=== PATIENT | female | born 1965 | race African-American/Black ===

== ENCOUNTER 2024-01-15 14:35 | Emergency (ER) | payer MEDICARE, MEDICAID, SELFPAY ==
--- NOTE | ~2024-01-15 | XR_ITS ---
EXAMINATION: XR LUMBOSACRAL SPINE CLINICAL INFORMATION: Back pain COMPARISON: None available. TECHNIQUE: Three views of the lumbosacral spine. Per technologist report, patient positioning with limited due to movement. FINDINGS: There is a mild levoscoliosis centered at L2. There is grade 1 retrolisthesis of L2 on L3 and grade 1 anterolisthesis of L4 on L5 which are age-indeterminate. Vertebral body heights are maintained. No definite acute fracture is seen. There is suspected mild multilevel disc space narrowing, suboptimally assessed due to positioning. There is suspected mild facet arthropathy of the lower lumbar spine. XR/XR lumbar spine 2-3V IMPRESSION: Suboptimal assessment due to positioning. Grade 1 retrolisthesis of L2 on L3 and grade 1 anterolisthesis of L4 on L5; these are age-indeterminate and may be chronic. Mild multilevel disc space narrowing suspected.
--- NOTE | ~2024-01-15 | XR_ITS ---
EXAMINATION: XR BILATERAL HIPS WITH AP PELVIS CLINICAL INFORMATION: Difficulty ambulating COMPARISON: None available. TECHNIQUE: AP pelvis, AP pelvis, AP right hip, AP left hip, oblique lateral right hip, oblique lateral left hip FINDINGS: Multiple pelvic phleboliths are noted. Intestinal anastomotic sutures are projected over the midline pelvis. The sacrum appears intact. The pelvis appears intact. The visualized femurs appear intact. XR/XR hip BI w PEL1V IMPRESSION: *No acute abnormalities identified. No fractures visualized. *Intestinal anastomotic chain sutures projected over the midline pelvis.
[2024-01-15 15:04] VITALS: BP 125/85; PULSE 76; RESP 18; TEMP 36.6; O2SAT 98; BMI 44.1
--- NOTE | 2024-01-15 15:04 | ED_ITS ---
HPI - General Adult General Chief complaint: Back Pain/Injury Stated complaint: walking huntch over Time Seen by Provider: 01/15/24 19:56 Source: patient Mode of arrival: ambulatory Limitations: no limitations History of Present Illness HPI narrative: Patient with history of chronic left hip pain also scoliosis unable to be managed at home no recent fall with history of cocaine and marijuana use looking for rehab no weakness no abdominal pain Related Data Allergies Allergy/AdvReac Type Severity Reaction Status Date / Time haloperidol [From Haldol] Allergy dystonia Verified 01/15/24 15:08 metoclopramide [From Reglan] AdvReac Itching Verified 01/15/24 15:08 Review of Systems 2 Review of Systems: Yes all other systems are reviewed and are negative [facility] Social History Social History Smoked in Last 30 Days: Yes Use of substances other than those prescribed or required for medical reasons: Yes Substance Use Type: Crack/Cocaine and IV Drugs Substance Use Frequency: Chronic Longstanding Advance Directives: Yes Advance Directives on File: Yes Advance Directives Date on File: 01/16/24 Patient : No Physical Exam ED Vital Signs: Vital Signs - 24 hr 01/15/24 15:04 01/15/24 17:56 01/15/24 19:57 Temperature 97.9 F 97.9 F 98.2 F Pulse Rate 76 71 100 Respiratory Rate 18 16 16 Blood Pressure 125/85 140/87 H 120/80 Pulse Oximetry 98 99 97 Oxygen Delivery Method Room Air Room Air Room Air 01/15/24 22:00 01/16/24 01:26 Temperature 98.1 F 99.1 F Pulse Rate 64 62 Respiratory Rate 16 16 Blood Pressure 123/76 123/73 Pulse Oximetry 97 95 Oxygen Delivery Method Room Air Room Air BMI result Body Mass Index 44.1 Appearance: Alert. Oriented X3. No acute distress. Eyes: PERRLA, ENT: Pharynx normal. Oral Mucosa moist Neck: Normal inspection. Neck supple. CVS: Normal heart rate and rhythm. Pulses normal. Respiratory: No respiratory distress. Equal air entry bilateral, no wheezing/rales/rhonchi Abdomen: Soft and nontender. Bowel sounds are present, no mass palpable, no CVA tenderness Skin: Skin warm and dry. Normal skin color. Normal skin turgor. back: Scoliosis+ no midline 10 Extremities: No lower extremity edema. No calf tenderness diffuse tenderness left lateral aspect of the thigh SLR negative good range of movement Neuro: Oriented X 3. No motor deficit. No sensory deficit.No cerebellar signs , cranial nerves II-XII intact Course Course Course Narrative: This is a rapid medical exam: Additional HPI, ROS, PE not included below will be deferred to primary provider. Patient is a 58-year-old female presenting to the ED stating that she was recently diagnosed with scoliosis, has been having left hip pain for the past 2 weeks. Called PCP, Dr. Laughlin, who referred patient to ED for admission/STR. Patient states she is barely able to ambulate. Plan: x-rays Reevaluation(s) Reevaluation #1: Physician observation continued. Vital signs stable. Patient awaiting PT Case Management evaluation. She is complaining of hip pain. Medicated with Tylenol 1 g p.o.. Will continue to monitor pending PT Case Management dispo. Time: 08:51 Medications Administered Discontinued Medications Generic Name Dose Route Start Last Admin Trade Name Zia PRN Reason Stop Dose Admin Gabapentin 300 mg 01/16/24 01:11 01/16/24 01:31 Gabapentin 300 Mg Capsule PO 01/16/24 01:12 300 mg ONCE ONE Administration Lorazepam 1 mg 01/16/24 01:11 01/16/24 01:31 Lorazepam 1 Mg Tablet PO 01/16/24 01:12 1 mg ONCE ONE Administration Morphine Sulfate 15 mg 01/15/24 20:19 01/15/24 20:28 Morphine Sulfate Immed Release 15 Mg Tablet PO 01/15/24 20:20 15 mg ONCE ONE Administration Medical Decision Making Medical Decision Making [facility] Narrative: Patient has chronic back pain and left leg pain likely sciatica patient claims that she can not walker manage at home because of the pain x-rays negative will keep patient in the ER for rehab placement Lab Data [facility] Lab Attestation statement: I reviewed the patient's lab results. 01/15/24 20:10 01/15/24 20:10 Labs: Lab Results 01/15/24 Range/Units 20:10 WBC 10.3 (4.8-10.8) X10*3/uL RBC 4.61 (4.20-5.50) X10*6/uL Hgb 14.1 (12.0-16.0) g/dl Hct 40.9 (37.0-47.0) % MCV 88.7 (80.0-98.0) fL MCH 30.6 (27.0-33.0) pg MCHC 34.5 (31.0-35.0) g/dl RDW 12.7 (11.0-16.0) % Plt Count 326 (160-400) X10*3/uL MPV 8.7 L (9.4-12.3) fL Immature Gran % (Auto) 1.2 H (0.0-0.4) % Neut % (Auto) 56.2 (45-73) % Lymph % (Auto) 32.4 (20-40) % Morrow % (Auto) 7.7 (2-11) % Eos % (Auto) 2.1 (0-4) % Baso % (Auto) 0.4 (0-2) % Lymph # (Auto) 3.3 (1.2-4.9) X10*3/uL Morrow # (Auto) 0.8 (0.1-1.2) X10*3/uL Eos # (Auto) 0.2 (0.0-0.4) X10*3/uL Baso # (Auto) 0.0 (0.0-0.2) X10*3/uL Abs Immat Gran (auto) 0.12 H (0.00-0.03) X10*3/uL Absolute Neuts (auto) 5.8 (2.0-8.3) x10*3/uL Absolute Nucleated RBC 0.000 (0.0-0.012) X10*3/uL Nucleated RBC % (auto) 0.0 (0.0-0.2) /100WBC Sodium 137 (135-145) mmol/L Potassium 3.7 (3.3-5.1) mmol/L Chloride 107 (96-108) mmol/L Carbon Dioxide 22 (22-29) mmol/L Anion Gap 12 (12-20) BUN 19 H (9-16) mg/dL Creatinine 0.96 (0.5-1.4) mg/dL Estim Creat Clear Calc 78.1 Estimated GFR 59 Random Glucose 93 (60-115) mg/dL Calcium 9.2 (8.4-10.2) mg/dL Total Bilirubin 0.2 (0.0-1.0) mg/dL AST 18 (5-31) U/L ALT 26 (0-31) U/L Alkaline Phosphatase 100 (39-117) U/L Total Protein 6.8 (6.5-8.0) g/dL Albumin 3.9 (3.5-5.0) g/dL Influenza Type A (PCR) NEGATIVE (Negative) Influenza Type B (PCR) NEGATIVE (Negative) RSV RNA Qual (PCR) NEGATIVE (Negative) SARS-CoV-2 RNA (RT-PCR) NEGATIVE (Negative) Independent Interpretation I performed an independent interpretation of an: Plain X-Ray Radiology Impression Discussion of test interpretation with radiology: I have reviewed the radiologist's reading. Radiologist Impression: XR/XR lumbar spine 2-3V IMPRESSION: Suboptimal assessment due to positioning. Grade 1 retrolisthesis of L2 on L3 and grade 1 anterolisthesis of L4 on L5; these are age-indeterminate and may be chronic. Mild multilevel disc space narrowing suspected. Discharge Plan Discharge Clinical Impression: Sciatica, Chronic back pain, Cocaine abuse Patient Disposition: Still a Patient
[2024-01-15 17:56] VITALS: BP 140/87; PULSE 71; RESP 16; TEMP 36.6; O2SAT 99
--- NOTE | 2024-01-15 18:04 | PC.NURSE ---
a&ox4. vss and up to date aside from being slightly hypertensive. pt presents to the ED d/t chronic bilateral hip pain that radiates to LE bilaterally. pt rating pain at a 10/10. pt was seen by provider earlier when pt was then advised pt to be seen in ED today to have PT/CM evaluation completed. pt verbalizes minimal relief w/ OTC Tylenol as well as prescribed gabapentin. pt also states she self medicates w/ marijuana (inhalation) and cocaine (intranasally). pt visibly tearful/unable to find a comfortable. no sob/wob noted. respirations even and unlabored. plan of care ongoing.
[2024-01-15 19:57] VITALS: BP 120/80; PULSE 100; RESP 16; TEMP 36.8; O2SAT 97
[2024-01-15 20:14] LABS: MANUAL DIFF FLAG NO
[2024-01-15 20:15] LABS: Basophils Percent Auto 0.4 % (0-2); Eosinophils Absolute Auto 0.2 X10*3/uL (0.0-0.4); Eosinophils Percent Auto 2.1 % (0-4); Hematocrit 40.9 % (37.0-47.0); Hemoglobin 14.1 g/dl (12.0-16.0); Imm Gran Abs Auto 0.12 X10*3/uL (0.00-0.03); Imm Gran Pct Auto 1.2 % (0.0-0.4); Lymphocytes Absolute Auto 3.3 X10*3/uL (1.2-4.9); Lymphocytes Percent Auto 32.4 % (20-40); Mean Corpuscular HGB Conc 34.5 g/dl (31.0-35.0); Mean Corpuscular Hemoglobin 30.6 pg (27.0-33.0); Mean Corpuscular Volume 88.7 fL (80.0-98.0); Mean Platelet Volume 8.7 fL (9.4-12.3); Monocytes Absolute Auto 0.8 X10*3/uL (0.1-1.2); Monocytes Percent Auto 7.7 % (2-11); Neutrophils Absolute Auto 5.8 x10*3/uL (2.0-8.3); Neutrophils Percent Auto 56.2 % (45-73); Platelet Count 326 X10*3/uL (160-400); Red Blood Count 4.61 X10*6/uL (4.20-5.50); Red Cell Distribution Width 12.7 % (11.0-16.0); White Blood Count 10.3 X10*3/uL (4.8-10.8)
[2024-01-15 20:28] LABS: Alanine Aminotransferase 26 U/L (0-31); Albumin Level 3.9 g/dL (3.5-5.0); Alkaline Phosphatase 100 U/L (39-117); Anion Gap 12 (12-20); Aspartate Amino Transferase 18 U/L (5-31); Bilirubin Total 0.2 mg/dL (0.0-1.0); Blood Urea Nitrogen 19 mg/dL (9-16); Calcium 9.2 mg/dL (8.4-10.2); Carbon Dioxide 22 mmol/L (22-29); Chloride 107 mmol/L (96-108); Creatinine Clr Calc Pharmacy 78.1; Estimated Glomerular Filt Rate 59; Glucose Random 93 mg/dL (60-115); Potassium 3.7 mmol/L (3.3-5.1); Sodium 137 mmol/L (135-145); Total Protein 6.8 g/dL (6.5-8.0)
[2024-01-15] MEDS: Morphine Sulfate Immed Release 15 MG TABLET PO (20:28)
--- NOTE | 2024-01-15 20:40 | PC.NURSE ---
tried to obtain urine sample however pt had diarrhea BM instead
--- NOTE | 2024-01-15 20:44 | MHC.EDTECH ---
Patient was assisted to bathroom with 2 asst and had diarrhea ,RN aware ,Patient was assisted back to bed .
[2024-01-15 20:51] LABS: Influenza A PCR NEGATIVE (Negative); Influenza B PCR NEGATIVE (Negative); Resp Syncy Virus RNA Qual PCR NEGATIVE (Negative); SARS COV2 PCR INHOUSE NEGATIVE (Negative)
[2024-01-15 22:00] VITALS: BP 123/76; PULSE 64; RESP 16; TEMP 36.7; O2SAT 97
--- NOTE | 2024-01-16 00:34 | MHC.EDTECH ---
Patient not able to give a urine sample .
[2024-01-16 01:26] VITALS: BP 123/73; PULSE 62; RESP 16; TEMP 37.3; O2SAT 95
--- NOTE | 2024-01-16 01:27 | MHC.EDTECH ---
VITALS TAKEN ,PURE WICK IN PLACE ,AND PATIENT WAS GIVEN FOOD AND FLUIDS ,CALL GUY WITHIN PATIENT REACH .
[2024-01-16] MEDS: LORazepam 1 MG TABLET PO ×3 (01:31→22:12)
[2024-01-16] MEDS: Gabapentin 300 MG CAPSULE PO ×2 (01:31→22:12)
--- NOTE | 2024-01-16 03:50 | MHC.EDTECH ---
Pt rang stating her purewick didn't work and she was all wet. Pt sat in chair while t/w did bedding changed. Mesh underwear provided, Pt cleaned up and back in bed. New purewick in place. Call [facility] within reach.
[2024-01-16] MEDS: Acetaminophen 325 MG TABLET 975 MG PO (08:58)
--- NOTE | 2024-01-16 09:52 | MHC.CM.ED ---
Addendum entered by Katie Pacheco 01/16/24 13:40: [facility] PASRR Level 2 has been obtained. MDS completed and sent to [facility]. Addendum entered by Katie Pacheco 01/16/24 13:14: Patient is requesting substance abuse is not discussed with daughters. Addendum entered by Katie Pacheco 01/16/24 11:55: Per nursing documentation, patient is a two person assist. Anticipate it will not be safe for patient to return home without short term rehab. Original Note: Received case management consult overnight. Patient came to the ER due to back pain and diff ambulating. Physical therapy eval ordered and pending. Will not be available before Tuesday 01/16. Met with patient in regards to discharge planning. Patient lives with her but is alone long periods of time. Patient ambulates independently and had no services prior to coming to the hospital. Patient is working with her PCP to get [employer] hours through [facility]. PCP verified. Copy of HCP obtained from [facility]. Patient aware physical therapy eval will not be available until Wednesday. Patient also aware placement for STR will be difficult to find d/t Cocaine use. Patient states she used it for pain management but understands placement can be anywhere in the [facility]. Referral will be broadcasted in [facility]. Patient will require [facility] PASRR Level 2. T/W already submitted for this. MDS will need to be sent to [facility]. Continue to monitor for d/c needs.
--- NOTE | 2024-01-16 10:26 | MHC.RECOVRN ---
Met with pt in ED3 after request by case management to discuss cocaine use. Pt had presented to the ED after recent dx with scoliosis and having worsening pain. Plan is for pt to go to STR. Pt sitting in bed, awake, alert, easily engages in conversation. Pt reports cocaine use, $50 approx 3 times per month, [place]. Pt reports she has used cocaine off and on x 15 years. Recently, pt reports using it to address pain, however, it is no longer effective. Pt denies all other substances. Pt reports longest period of recovery was 9 months after surgery a few years ago. Pt reports is aware of substance use and is supportive. Pt reports she is a private person and does not want other people to be aware of her use, including her daughters. Discussed recovery support options including recovery coaching. Pt is interested in a referral and meeting with a assistant golf coach outpatient. Pt does not want written resources as she is concerned her daughters will find it. Pt denies other questions or concerns. speech coach referral placed, assistant golf coach to call pt to discuss intake process further. Discussed with [facility].
[2024-01-16 10:37] LABS: Appearance Urine Clear; Color Urine Yellow; Glucose Urine UA Negative (Negative); Leukocyte Esterase Urine Negative (Negative); Nitrite Urine Negative (Negative); PH 6.5 (5.0-9.0); Urine Blood Negative (Negative); Urine Ketones Negative (Negative); Urine Protein Negative (Neg-Trace)
[2024-01-16 10:43] LABS: Amphetamine Screen Urine Not Detected (Not Detect); Barbiturates, Urine Not Detected (Not Detect); Benzodiazepines Screen Urine Not Detected (Not Detect); Cannabinoid Screen Urine POSITIVE (Not Detect); Cocaine Screen Urine POSITIVE (Not Detect); Fentanyl, urine Not Detected (Not Detect); Opiate Screen Urine POSITIVE (Not Detect); Phencyclidine Screen Urine Not Detected (Not Detect)
[2024-01-16 11:06] VITALS: BP 106/68; PULSE 59; RESP 19; TEMP 36.6
--- NOTE | 2024-01-16 11:27 | MHC.EDTECH ---
Pt used comode and had a bowel movement and back in bed
[2024-01-16] MEDS: oxyCODONE HCl Immed Release 5 MG TABLET PO ×2 (12:22→18:53)
--- NOTE | 2024-01-16 15:17 | PC.NURSE ---
assumed care of pt at 1500. pt a&o x4, calm, and cooperative. pt resting with ice pack under left knee. warm blanket given. pt quietly watching tv in bed, rr even/unlabored. call [facility] within reach. plan of care ongoing.
[2024-01-16 15:44] VITALS: BP 120/71; PULSE 71; RESP 16; TEMP 36.5; O2SAT 98
--- NOTE | 2024-01-16 18:27 | PC.NURSE ---
pt 1 assist to commode x2 for BM, liquid brown and small. pt hygeine given and back to bed.
--- NOTE | 2024-01-16 19:11 | PC.NURSE ---
Addendum entered by Judy Alvarado RN 01/16/24 19:12: *correction: L hip pain* Original Note: pt medicated per dec for 06/10 R hip pain. pt resting quietly in bed watching tv, rr even/unlabored. call [facility] within reach. plan of care ongoing.
[2024-01-16 21:59] VITALS: BP 142/70; PULSE 73; RESP 18; TEMP 36.4; O2SAT 100
[2024-01-17] MEDS: LORazepam 1 MG TABLET PO ×3 (01:55→13:26)
[2024-01-17] MEDS: hydrOXYzine HCL 50 MG TABLET PO (01:55)
[2024-01-17 06:19] VITALS: BP 118/71; PULSE 63; RESP 16; TEMP 36.2; O2SAT 97
[2024-01-17] MEDS: Gabapentin 300 MG CAPSULE PO ×2 (07:21→12:03)
--- NOTE | 2024-01-17 08:10 | MHC.EDTECH ---
patient is eating breakfast and will brush teeth after set up was given.
[2024-01-17] MEDS: Acetaminophen 325 MG TABLET 650 MG PO ×2 (08:55→15:47)
--- NOTE | 2024-01-17 09:14 | MHC.EDTECH ---
patient was assisted to the commode and wash washed up with a complete bed change
[2024-01-17] MEDS: Lidocaine 4 % Patch ADH..PATCH 1 PATCH TRANSDERMA (09:30)
--- NOTE | 2024-01-17 10:20 | MHC.CM.PN ---
PT eval done, they are recommending STR, referral updated.
--- NOTE | 2024-01-17 10:45 | PC.NURSE ---
Pt is A&O x4. Pt woke up complaining of pain/discomfort in both hips, but mostly in her L. Scheduled and PRN pain meds provided as ordered. Pt had most of her breakfast, and used the bedside commode with assistance.
--- NOTE | 2024-01-17 11:19 | MHC.CM.PN ---
Addendum entered by Marcelina Bojorquez 01/17/24 12:04: CM RECEIVED A MESSAGE THAT PTS DAUGHTER WAS REQUESTING AN UPDATE CM ATTEMPTED TO CONTACT HER X 2 AT THE NUMBER LEFT [phone] GENERIC MESSAGE LEFT WITH CM CONTACT INFORMATION Original Note: Pt is medically cleared for D/C to STR, pt was offered a bed at [facility] for today. PASRR and MAGUI completed by previous CM. This CM met with pt to discuss DCP, pt in agreement with going to [facility] today. Transport set up for 3pm via [facility].
--- NOTE | 2024-01-17 12:40 | PC.NURSE ---
pt choked on lunch. pt seen to be coughing and gagging. Pt was still able to speak and cough. pt eventually able to cough up food. Provider notified. Pt resting calmly in bed.
--- NOTE | 2024-01-17 12:45 | MHC.EDTECH ---
patient ate 25 percent of her lunch
[2024-01-17 14:00] VITALS: BP 147/99; PULSE 94; RESP 22; TEMP 36.4; O2SAT 99
--- NOTE | 2024-01-17 14:05 | MHC.EDTECH ---
patient was assisted to the commode.
--- NOTE | 2024-01-17 15:53 | PC.NURSE ---
changed to chopped diet as reported on prev shift pt reportedly had difficulty chewing. crushe tylenol for hip pain- tolerated well in pudding. awaiting ambulance still
--- NOTE | 2024-01-17 15:56 | PC.NURSE ---
area secretary calling ambulance to check in for ETA.
--- NOTE | 2024-01-17 16:25 | MHC.EDTECH ---
CALLED [facility] FOR ETA IT IS CURRENTLY 1626 WITH AN ORIGINAL ETA OF 1500. LISSY AT [facility] STATED THAT THEY DID NOT HAVE ANYTHING BOOKED FOR THIS PT. I PROCEEDED TO BOOK THE AMBULANCE @1617
--- NOTE | 2024-01-17 16:25 | PC.NURSE ---
per financial secretary ambulance had not been booked- financial secretary booking at this time.
[2024-01-17 17:15] VITALS: BP 147/99; PULSE 94; RESP 22; TEMP 36.4; O2SAT 99
--- NOTE | 2024-01-17 17:27 | PC.NURSE ---
pt dicharged by maddie yung while this rn was off the floor.
== END 2024-01-17 17:15 | disposition skilled nursing facility (03) ==
PROVIDERS: Emergency Provider Internal Medicine; PCP Internal Medicine
DX: M54.30 Sciatica, unspecified side (principal); F14.10 Cocaine abuse, uncomplicated; M54.50 Low back pain, unspecified; M25.552 Pain in left hip; M41.9 Scoliosis, unspecified; M79.605 Pain in left leg; Z11.52 Encounter for screening for COVID-19; Z20.828 Contact with and (suspected) exposure to other viral communicable diseases
CPT/HCPCS: 0241U; 36415; 72100; 73521; 80053; 80307; 81003; 85025; 97162; 99285